=== PATIENT | female | born 1955 | race American Indian/Alaskan Native ===

== ENCOUNTER 2024-08-28 14:08 | Emergency (ER) | payer OTHER, MEDICARE ==
[~2024-08-28] VITALS: Ht 152.4 cm; Wt 77.1 kg
[~2024-08-28 14:08] MED LIST: AMLO5 PO; LOSA50 PO; METO100ER PO; MOMENI
[2024-08-28] MEDS ORDERED: Diphth,Pertuss(Acell),Tet Vac 0.5 ML VIAL IM ONE (16:15)
[2024-08-28] MEDS ORDERED: Amoxicillin/Clavulanate K 875 MG Tab PO ONE (16:15)
[2024-08-28] MEDS ORDERED: AMOCLA875 PO (16:25)
== END 2024-08-28 17:33 | disposition home or self-care (01) ==
LOC: ER 14:08
DX: S62.634B Displaced fracture of distal phalanx of right ring finger, initial encounter for open fracture (principal); I10 Essential (primary) hypertension; R73.03 Prediabetes; Z79.899 Other long term (current) drug therapy; W01.0XXA Fall on same level from slipping, tripping and stumbling without subsequent striking against object, initial encounter
CPT/HCPCS: 12001; 73140; 90471; 90715; 99282-25; A9270